=== PATIENT | male | born 1995 | race Caucasian/White ===

== ENCOUNTER 2019-09-14 22:53 | Emergency (ER) | payer OTHER, SELFPAY ==
--- NOTE | 2019-09-14 23:57 | RAD ---
Exam:4 views right elbow HISTORY: Trauma. COMPARISON: None FINDINGS: Limited evaluation of the distal humerus due to patient position. There appears be irregula rity involving the distal humerus without definite cortical disruption. However, there is a large joint effusion. Possibility of radiographically occult fracture cannot be excluded. IMPRESSION: 1. Large joint effusion. Obvious fracture is not appreciated but there is irregularity of the distal humerus. Consider further evaluation with CT.
--- NOTE | 2019-09-14 23:59 | RAD ---
Exam:3 views right wrist HISTORY: Trauma. Pain. COMPARISON: None FINDINGS: Intercarpal and radiocarpal joint spaces are preserved. Questionable lucency at the base of the fifth metacarpal and along the medial aspect of the hamate bone. Possibility of injury in this region cannot be excluded. Lateral right hand and wrist soft tissue swelling. IMPRESSION: 1. Possible injury at the base of the fifth metacarpal and medial aspect of the hamate bone. Correlat e for point tenderness. 2. There appears to be soft tissue swelling along the lateral aspect of the right wrist and hand
[2019-09-15] MEDS ORDERED: Ibuprofen 800 MG TAB ONE (00:06)
[2019-09-15] MEDS ORDERED: Acetaminophen 500 MG TAB ONE (00:06)
[2019-09-15] MEDS ORDERED: Adacel (T-DAP) 0.5 ML SYRINGE ONE (00:07)
== END 2019-09-15 00:48 | disposition home or self-care (01) ==
LOC: ERS 22:53
DX: S50.01XA Contusion of right elbow, initial encounter (principal); S60.512A Abrasion of left hand, initial encounter; S60.511A Abrasion of right hand, initial encounter; M25.421 Effusion, right elbow; F17.210 Nicotine dependence, cigarettes, uncomplicated; W19.XXXA Unspecified fall, initial encounter
CPT/HCPCS: 29105; 90471; 90715